=== PATIENT | male | born 1950 | race Caucasian/White ===

== ENCOUNTER 2020-06-26 16:27 | Inpatient (IN) | payer MEDICAID, MEDICARE ==
[~2020-06-26] VITALS: Ht 175.3 cm; Wt 57.7 kg
--- NOTE | 2020-06-26 17:44 | NUR ---
PT IS IN ROOM #2B. DR NUÑEZ EVALUATED THE PT.
[2020-06-26 18:05] LABS: BASOPHILS # (AUTO) 0.1 K/uL (0.0-8.0); BASOPHILS % (AUTO) 1.2 % (0.0-2.0); EOSINOPHILS # (AUTO) 0.5 K/uL (0.0-0.7); EOSINOPHILS % (AUTO) 6.3 % (0.0-7.0); HEMATOCRIT 24.3 % (36.7-47.1); LYMPHOCYTES # (AUTO) 0.5 K/uL (20.0-40.0); LYMPHOCYTES % (AUTO) 7.1 % (20.5-51.5); MEAN CORPUSCULAR HEMOGLOBIN 29.2 uug (23.8-33.4); MEAN CORPUSCULAR HGB CONC 30 g/dL (32.5-36.3); MEAN CORPUSCULAR VOLUME 98.1 fL (73.0-96.2); MONOCYTES # (AUTO) 0.6 K/uL (2.0-10.0); MONOCYTES % (AUTO) 8.5 % (0.0-11.0); NEUTROPHILS # (AUTO) 5.8 K/uL (1.8-8.9); NEUTROPHILS % (AUTO) 76.9 % (38.5-71.5); PLATELET COUNT (AUTO) 385 K/uL (152-348); WHITE BLOOD COUNT (AUTO) 7.6 K/uL (3.6-10.2)
[2020-06-26 18:09] LABS: RED BLOOD CELL COUNT(AUTO) 2.48 MIL/uL (4.06-5.63)
[2020-06-26 18:10] LABS: CREATININE 2.5 mg/dL (0.6-1.3); POTASSIUM 3.9 mmol/L (3.5-5.1)
[2020-06-26 18:12] LABS: HEMOGLOBIN 7.2 g/dL (12.5-16.3)
[2020-06-26 18:25] LABS: BILIRUBIN,DIRECT 0.2 mg/dL (0.0-0.2); BILIRUBIN,TOTAL 0.3 mg/dL (0.2-1.0); TOTAL PROTEIN, SERUM 6.5 g/dL (6.4-8.2)
--- NOTE | 2020-06-26 19:03 | NUR ---
Received report from CARMEN Kirk for continuity of care. Patient will be admitted to [facility] under Dr. Feliciano for near syncope, severe anemia, and hypernatremia
--- NOTE | 2020-06-26 19:46 | NUR ---
Per CARMEN Fulton patient will be going into 318
--- NOTE | 2020-06-26 19:48 | NUR ---
Elizabeth, RN will be nurse to assume care but is unable to take of report right now.
--- NOTE | 2020-06-26 20:09 | NUR ---
Report given to CARMEN Johnson
[2020-06-26] MEDS ORDERED: ONDANSETRON 4 MG/2 ML VIAL IV PRN (21:15)
[2020-06-26] MEDS ORDERED: MORPHINE SULFATE 2 MG/1 ML DISP.SYRIN IV PRN (21:15)
[2020-06-26] MEDS: DOCUSATE SODIUM 100 MG CAPSULE PO SCH (21:34)
[2020-06-26] MEDS: IV DEXTROSE 5% 500 ML IV PRN (21:35)
[2020-06-26 21:56] VITALS: BP 120/52
--- NOTE | 2020-06-26 22:47 | NUR ---
Pt arrived in the unit at 2049 via gurney from ER. Pt is AAO x3. No acute distress noted, room air. Denies pain/ discomfort. Pt noted to look unkempt. Noted multiple open ulcers on bilateral lower extremities. Pictures taken, wound care done. As per pt, he has been having a hard time moving and ambulating, unable to take care of himself, and lives alone. Pt has IV on right AC #20. Also noted pt to be hard of hearing. Safety measures maintained. Call light and personal items within reach. Will continue to monitor.
[2020-06-27] VITALS (12 sets, daily range): BP systolic 103–117; BP diastolic 55–66
[2020-06-27] MEDS: IV DEXTROSE 5% 500 ML IV PRN ×2 (05:10→12:56)
[2020-06-27] MEDS: PANTOPRAZOLE SODIUM 40 MG TABLET.DR PO SCH (06:04)
[2020-06-27 07:03] LABS: BASOPHILS # (AUTO) 0.1 K/uL (0.0-8.0); EOSINOPHILS # (AUTO) 0.8 K/uL (0.0-0.7); EOSINOPHILS % (AUTO) 9.9 % (0.0-7.0); LYMPHOCYTES # (AUTO) 0.8 K/uL (20.0-40.0); LYMPHOCYTES % (AUTO) 9.6 % (20.5-51.5); MEAN CORPUSCULAR HEMOGLOBIN 30.3 uug (23.8-33.4); MEAN CORPUSCULAR HGB CONC 31 g/dL (32.5-36.3); MEAN CORPUSCULAR VOLUME 98.3 fL (73.0-96.2); MONOCYTES # (AUTO) 0.8 K/uL (2.0-10.0); MONOCYTES % (AUTO) 9.6 % (0.0-11.0); NEUTROPHILS # (AUTO) 5.6 K/uL (1.8-8.9); NEUTROPHILS % (AUTO) 69.9 % (38.5-71.5); PLATELET COUNT (AUTO) 296 K/uL (152-348); WHITE BLOOD COUNT (AUTO) 8.1 K/uL (3.6-10.2)
[2020-06-27 07:24] LABS: THYROID STIMULATING HORMONE 3.233 mIU/mL (0.358-3.740)
[2020-06-27 07:57] LABS: BILIRUBIN,TOTAL 0.3 mg/dL (0.2-1.0); CREATININE 2.3 mg/dL (0.6-1.3); MAGNESIUM 2.1 mg/dL (1.8-2.4); PHOSPHOROUS 4.1 mg/dL (2.5-4.9); POTASSIUM 3.6 mmol/L (3.5-5.1); TOTAL PROTEIN, SERUM 5.3 g/dL (6.4-8.2)
[2020-06-27 08:38] LABS: RED BLOOD CELL COUNT(AUTO) 1.98 MIL/uL (4.06-5.63)
[2020-06-27 08:40] LABS: HEMATOCRIT 19.5 % (36.7-47.1)
--- NOTE | 2020-06-27 13:51 | NUR ---
unit of PRBC started, vss, instructed on s/s of BT reactions- verbalized understanding, will monitor closely
--- NOTE | 2020-06-27 14:10 | NUR ---
no shortness of breath noted, no itching, no rashes, VSS
--- NOTE | 2020-06-27 15:51 | NUR ---
blood infusing without problem
[2020-06-27 17:00] LABS: *BILIRUBIN,URIN NEGATIVE (NEGATIVE); *BLOOD, URINE NEGATIVE (NEGATIVE); *CLARITY,URINE CLEAR (CLEAR); *COLOR,URINE YELLOW (YELLOW); *KETONES,URINE NEGATIVE (NEGATIVE); *UROBILINOGEN,URINE 0.2 E.U./dl (NORMAL); LEUKOCYTE ESTERASE ,URINE NEGATIVE (NEGATIVE); NITRITE, URINE NEGATIVE (NEGATIVE); UGLUCOSE NEGATIVE (NEGATIVE)
--- NOTE | 2020-06-27 17:02 | NUR ---
blood transfusion completed, VSS, no BT reaction noted
[2020-06-27] MEDS: MAG HYDROX/AL HYDROX/SIMETH 30 ML LIQUID UDC PO PRN (18:15)
[2020-06-27 19:54] LABS: EOSINOPHILS % (MANUAL) 7 % (0-8); LYMPHOCYTES % (MANUAL) 5 % (20-40); MONOCYTES % (MANUAL) 4 % (2-10); NEUTROPHILS % (MANUAL) 84 % (42-75)
[2020-06-27] MEDS: DOCUSATE SODIUM 100 MG CAPSULE PO SCH (21:53)
[2020-06-28] MEDS: IV DEXTROSE 5% 500 ML IV PRN ×3 (02:45→17:00)
[2020-06-28 05:02] VITALS: BP 101/55
[2020-06-28] MEDS: PANTOPRAZOLE SODIUM 40 MG TABLET.DR PO SCH (06:46)
[2020-06-28 07:23] LABS: MEAN CORPUSCULAR VOLUME 95.4 fL (73.0-96.2); MONOCYTES # (AUTO) 0.4 K/uL (2.0-10.0); WHITE BLOOD COUNT (AUTO) 6.9 K/uL (3.6-10.2)
[2020-06-28 07:25] LABS: BASOPHILS # (AUTO) 0.1 K/uL (0.0-8.0); BASOPHILS % (AUTO) 0.8 % (0.0-2.0); LYMPHOCYTES # (AUTO) 0.7 K/uL (20.0-40.0); LYMPHOCYTES % (AUTO) 10.4 % (20.5-51.5); MEAN CORPUSCULAR HEMOGLOBIN 29.5 uug (23.8-33.4); MEAN CORPUSCULAR HGB CONC 31 g/dL (32.5-36.3); MONOCYTES % (AUTO) 6.2 % (0.0-11.0); NEUTROPHILS # (AUTO) 4.6 K/uL (1.8-8.9); NEUTROPHILS % (AUTO) 67.6 % (38.5-71.5); PLATELET COUNT (AUTO) 288 K/uL (152-348); RED BLOOD CELL COUNT(AUTO) 2.52 MIL/uL (4.06-5.63)
[2020-06-28 07:40] LABS: BILIRUBIN,TOTAL 0.2 mg/dL (0.2-1.0); MAGNESIUM 2.1 mg/dL (1.8-2.4); PHOSPHOROUS 3.4 mg/dL (2.5-4.9); TOTAL PROTEIN, SERUM 5.3 g/dL (6.4-8.2)
[2020-06-28 08:05] LABS: HEMOGLOBIN 7.4 g/dL (12.5-16.3)
[2020-06-28 11:40] VITALS: BP 107/54
--- NOTE | 2020-06-28 12:42 | NUR ---
WOUND CARE CONSULT: PT EATING LUNCH AT THIS TIME. LIMITED ASSESSMENT INCLUDING SACRAL SCARRING, PRESENT ON ADMISSION. DRESSINGS NOTED TO BILATERAL LOWER LEGS WITH SEROUS DRAINAGE, PRESENT ON ADMISSION. REVIEWED CHART, NURSING DOCUMENTATION AND PHOTOS WHICH INDICATE BILATERAL LOWER LEG ULCERS, PRESENT ON ADMISSION. DR OTT NOTIFED OF DPM CONSULT REQUEST. RECOMMENDATIONS MADE FOR PROTECTION OF SACRAL SCARRING. DISCUSSED WITH NURSING STAFF. CURRENT ADRIANA SCORE IS 15. MD IN AGREEMENT WITH PLAN OF CARE.
--- NOTE | 2020-06-28 15:41 | NUR ---
Communication Clerk Consultation: 12:10pm: This SW met with the patient today. Reason for consultation is that patient lives alone, patient suffers from OCD. Patient is a 70 year old male. Patient was brought to the ED by paramedics on 06/27/20 after he called 911 because he felt he was becoming weak, unable to walk, and was feeling faint. Patient is alert, oriented, receptive to speaking with this SW. Patient lives alone. Patient reports being able to tend to his ADL's, however he has re-occurring ankle/leg wounds that sometimes hinder his ability to ambulate. Patient reports several medical problems, such as heart arrhythmia, tinnitus, and OCD, however reports that he does not have a regular PCP and has not sought out medical care for nearly 20 years. Patient reports not taking any medications. Patient also reports that due to his OCD (which patient reports he was diagnosed with in 1981), patient has not sought out very minimal psychiatric care. Patient denies hx of psychiatric hospitalizations. Patient described some of his obsessions and compulsions, related to germs, dust, contaminants, and frequent hand washing. Patient also described anxious thoughts related to his OCD. SW allowed patient to expressed his thoughts, and provided support. SW discussed having a psychiatric consultation while in the hospital, and patient verbalized agreement. SW spoke with patient's nurse Siggy, who stated that the psychiatric consultation has already been ordered. Patient reported never being , nor having any children. Patient stated that he has a cousin, Vicky Carter, , who he has contact with about 1 x month, and during holidays. Vicky is listed on patient's face sheet as person to notify, and patient stated that Vicky is aware of patient's current hospitalization. Patient was cooperative with this SW throughout the interview, engaged in dialogue. Patient's affect and behavior were WNL, however patient's fingers and finger nails were unkempt. Patient's legs were wrapped in bandages due to wounds, which patient reported were hindering his ability to ambulate safely at this time. Patient reports not having any DME at home. Discharge plans were discussed, and patient reports that he would like to return home. SW to coordinate with case management to ensure a safe and proper discharge plan. SW will remain available to provide community resources, as needed. At this time, due to patient's multiple wounds and reported lack of medical care, this SW will file an APS report for self-neglect. Addendum: 06/28/20 at 1632 by ASH TYLER Additional information: Patient reports no hx of substance abuse. Patient's home address and phone number are: [id number] [place] [address]
--- NOTE | 2020-06-28 16:32 | NUR ---
APS report made for suspicion of self-neglect, report # [id number].
[2020-06-28 16:34] VITALS: BP 108/65
[2020-06-28] MEDS: ENSURE ENLIVE (VAN) 240 ML LIQUID PO SCH (17:59)
[2020-06-28 18:20] LABS: *CREATININE,URINE 60.6 mg/dL (30-125); *URINE TOTAL PROTEIN RANDOM 15.1 mg/dL (<150/24HR)
[2020-06-28 20:09] VITALS: BP 135/75
[2020-06-28] MEDS: DOCUSATE SODIUM 100 MG CAPSULE PO SCH (20:46)
[2020-06-28] MEDS ORDERED: VANCOMYCIN IV 1,000 MG in IV DEXTROSE 5% 250 ML IV SCH (21:00)
--- NOTE | 2020-06-28 21:00 | NUR ---
Received patient awake and alert. No s/s of acute distress noted at this time. Pt on RA denies SOB. Pt c/o mild pain in BLE, refusing pain medication at this time. BLE elevated and encouraged patient to reposition in bed often. Right AC IV patent and intact. Safety measures in place and will continue to monitor.
[2020-06-28] MEDS ORDERED: CEFEPIME HCL 1 G in IV DEXTROSE 5% 50 ML IV SCH (21:45)
[2020-06-28] MEDS ORDERED: CLINDAMYCIN PHOSPHATE IV 900 MG in IV DEXTROSE 5% 100 ML IV SCH (22:00)
[2020-06-28] MEDS ORDERED: CEFEPIME HCL 1 G VIAL ONE (23:04)
[2020-06-28] MEDS ORDERED: CLINDAMYCIN 900MG/D5W 100ML IVPB **ER PYXIS ONLY IJ ONE (23:04)
[2020-06-29] MEDS ORDERED: PIPERACILLIN/TAZO 2.25 G in IV DEXTROSE 5% 50 ML IV SCH ×2
[2020-06-29] MEDS: IV D5W 1000ML 1,000 ML IV SCH ×3 (00:02→21:55)
[2020-06-29 04:12] VITALS: BP 135/79
[2020-06-29] MEDS: PANTOPRAZOLE SODIUM 40 MG TABLET.DR PO SCH (06:14)
[2020-06-29 07:03] LABS: BILIRUBIN,TOTAL 0.3 mg/dL (0.2-1.0); CREATININE 1.5 mg/dL (0.6-1.3); PHOSPHOROUS 2.8 mg/dL (2.5-4.9); POTASSIUM 3.9 mmol/L (3.5-5.1); TOTAL PROTEIN, SERUM 5.5 g/dL (6.4-8.2)
[2020-06-29 07:14] LABS: BASOPHILS # (AUTO) 0.1 K/uL (0.0-8.0); EOSINOPHILS # (AUTO) 0.8 K/uL (0.0-0.7); EOSINOPHILS % (AUTO) 13.1 % (0.0-7.0); HEMATOCRIT 24.8 % (36.7-47.1); HEMOGLOBIN 7.6 g/dL (12.5-16.3); LYMPHOCYTES # (AUTO) 0.7 K/uL (20.0-40.0); LYMPHOCYTES % (AUTO) 11.4 % (20.5-51.5); MEAN CORPUSCULAR HEMOGLOBIN 29.2 uug (23.8-33.4); MEAN CORPUSCULAR HGB CONC 31 g/dL (32.5-36.3); MEAN CORPUSCULAR VOLUME 95.5 fL (73.0-96.2); MONOCYTES # (AUTO) 0.7 K/uL (2.0-10.0); MONOCYTES % (AUTO) 11.7 % (0.0-11.0); NEUTROPHILS % (AUTO) 62.8 % (38.5-71.5); PLATELET COUNT (AUTO) 272 K/uL (152-348); RED BLOOD CELL COUNT(AUTO) 2.59 MIL/uL (4.06-5.63); WHITE BLOOD COUNT (AUTO) 6.4 K/uL (3.6-10.2)
--- NOTE | 2020-06-29 08:30 | NUR ---
Received p.t in bed alert and awake, resting comfortably denies any pain and discomfort. I.V line is intact. Breathing is even and unlabored on room air. Vitals signs is wnl. compliant with most aspect of care. Call is within reach.
[2020-06-29] MEDS: MULTIVITAMINS,THERAPEUTIC TABLET PO SCH (08:50)
[2020-06-29] MEDS: FOLIC ACID 1 MG TABLET PO SCH (08:50)
[2020-06-29] MEDS: THIAMINE HCL 100 MG TABLET PO SCH (08:50)
[2020-06-29] MEDS: CLINDAMYCIN PHOSPHATE IV 900 MG in IV DEXTROSE 5% 100 ML IV SCH ×2 (09:04→16:32)
[2020-06-29] MEDS: ENSURE ENLIVE (VAN) 240 ML LIQUID PO SCH ×3 (09:04→17:07)
[2020-06-29] MEDS: THERAHONEY GEL 1.5 OZ TUBE TOP SCH (11:42)
[2020-06-29 12:42] VITALS: BP 132/83
[2020-06-29 15:56] VITALS: BP 121/64
[2020-06-29 16:43] LABS: ALBUMIN 2.1; ALPHA-1-GLOBULIN 0.3; ALPHA-2-GLOBULIN 0.6; BETA GLOBULIN 0.8
[2020-06-29 16:44] LABS: A/G RATIO 0.8; GLOBULIN, TOTAL 2.7; M-SPIKE NOT OBSERVED
--- NOTE | 2020-06-29 19:00 | NUR ---
P.t is bed comfortably watching T.V. Denies any pain and discomfort. Breathing is even and unlabored on R.A. vitals are WNL. All meds are rendered and tolerated well. PT rehab seen the patient today with 1 person assist. Remains complaint with most aspect of care. All needs are met. Relayed status to manufacturing supervisor 2nd shift nurse. Call light within reach.
--- NOTE | 2020-06-29 19:30 | NUR ---
Pt received in bed, resting. Does not appear to be in any pain or distress. No SOB noted. Pt is on RA sating at 100%. Bed is locked and in lowest position, bed alarm on. Call light is within reach. No other issues or concerns at this time.
[2020-06-29 20:00] VITALS: BP 128/76
[2020-06-29] MEDS: DOCUSATE SODIUM 100 MG CAPSULE PO SCH (20:00)
[2020-06-29] MEDS: CEFEPIME HCL 2 G in IV DEXTROSE 5% 100 ML IV SCH (20:00)
[2020-06-30] MEDS: CLINDAMYCIN PHOSPHATE IV 900 MG in IV DEXTROSE 5% 100 ML IV SCH ×3 (00:20→16:19)
[2020-06-30 04:00] VITALS: BP 123/72
[2020-06-30 05:59] LABS: BASOPHILS # (AUTO) 0.1 K/uL (0.0-8.0); BASOPHILS % (AUTO) 1.3 % (0.0-2.0); EOSINOPHILS # (AUTO) 0.9 K/uL (0.0-0.7); HEMATOCRIT 25.3 % (36.7-47.1); LYMPHOCYTES # (AUTO) 0.6 K/uL (20.0-40.0); LYMPHOCYTES % (AUTO) 11.5 % (20.5-51.5); MEAN CORPUSCULAR HGB CONC 32 g/dL (32.5-36.3); MEAN CORPUSCULAR VOLUME 95.2 fL (73.0-96.2); MONOCYTES # (AUTO) 0.7 K/uL (2.0-10.0); MONOCYTES % (AUTO) 13.4 % (0.0-11.0); NEUTROPHILS # (AUTO) 3.1 K/uL (1.8-8.9); NEUTROPHILS % (AUTO) 56.8 % (38.5-71.5); PLATELET COUNT (AUTO) 292 K/uL (152-348); RED BLOOD CELL COUNT(AUTO) 2.65 MIL/uL (4.06-5.63); WHITE BLOOD COUNT (AUTO) 5.4 K/uL (3.6-10.2)
[2020-06-30 06:10] LABS: CREATININE 1.3 mg/dL (0.6-1.3); MAGNESIUM 1.7 mg/dL (1.8-2.4); PHOSPHOROUS 2.8 mg/dL (2.5-4.9)
[2020-06-30] MEDS: PANTOPRAZOLE SODIUM 40 MG TABLET.DR PO SCH (06:25)
[2020-06-30] MEDS: ENSURE ENLIVE (VAN) 240 ML LIQUID PO SCH ×3 (08:09→17:33)
[2020-06-30] MEDS: IV D5W 1000ML 1,000 ML IV SCH ×2 (08:33→20:44)
[2020-06-30] MEDS ORDERED: MAGNESIUM OXIDE 400 MG TABLET PO ONE (09:00)
[2020-06-30] MEDS: MULTIVITAMINS,THERAPEUTIC TABLET PO SCH (09:01)
[2020-06-30] MEDS: THIAMINE HCL 100 MG TABLET PO SCH (09:01)
[2020-06-30] MEDS: FOLIC ACID 1 MG TABLET PO SCH (09:01)
[2020-06-30] MEDS: THERAHONEY GEL 1.5 OZ TUBE TOP SCH (09:21)
[2020-06-30 11:58] VITALS: BP 106/63
--- NOTE | 2020-06-30 15:27 | NUR ---
NAYELI received a phone call from APS home restoration service supervisor Vernell, , and APS NAYELI Wesley [phone]. NAYELI called Vernell back, who wanted to check on patient's location. NAYELI informed Vernell that patient is currently still at [facility]. Vernell thanked NAYELI for this information and stated that Maryjane is the assigned SW for the case. NAYELI called Mayrjane. Patient's needs were discussed. SW to follow-up with Maryjane regarding DC plan and date.
[2020-06-30 16:00] VITALS: BP 111/67
[2020-06-30 17:36] LABS: *OCCULT BLOOD STOOL POSITIVE (NEGATIVE)
--- NOTE | 2020-06-30 19:35 | NUR ---
Received patient in bed, awake, alert and oriented x 4, able to make needs known. IV access on R upper arm intact and patent. Saturating 99% on room air. No s/s of acute respiratory distress. No pain or discomfort reported. Safety measures initiated, bed on low position, call sow within reach. will continue to monitor.
[2020-06-30 20:09] VITALS: BP_SYST 110; BP_SYST 123; BP_DIAS 53; BP_DIAS 64
[2020-06-30] MEDS: CEFEPIME HCL 2 G in IV DEXTROSE 5% 100 ML IV SCH (20:28)
[2020-06-30] MEDS: DOCUSATE SODIUM 100 MG CAPSULE PO SCH (20:29)
[2020-07-01 04:09] VITALS: BP 122/75
[2020-07-01 05:36] LABS: BASOPHILS % (AUTO) 0.7 % (0.0-2.0); EOSINOPHILS # (AUTO) 0.9 K/uL (0.0-0.7); HEMATOCRIT 24.3 % (36.7-47.1); HEMOGLOBIN 7.8 g/dL (12.5-16.3); LYMPHOCYTES # (AUTO) 0.8 K/uL (20.0-40.0); LYMPHOCYTES % (AUTO) 14.2 % (20.5-51.5); MEAN CORPUSCULAR HGB CONC 32 g/dL (32.5-36.3); MONOCYTES % (AUTO) 17.1 % (0.0-11.0); NEUTROPHILS # (AUTO) 2.9 K/uL (1.8-8.9); PLATELET COUNT (AUTO) 295 K/uL (152-348); RED BLOOD CELL COUNT(AUTO) 2.59 MIL/uL (4.06-5.63); WHITE BLOOD COUNT (AUTO) 5.6 K/uL (3.6-10.2)
[2020-07-01 05:45] LABS: BAND % (MANUAL) 0 % (0-10); EOSINOPHILS % (MANUAL) 16 % (0-8); LYMPHOCYTES % (MANUAL) 14 % (20-40); MONOCYTES % (MANUAL) 17 % (2-10); NEUTROPHILS % (MANUAL) 53 % (42-75)
[2020-07-01 06:03] LABS: CREATININE 1.2 mg/dL (0.6-1.3); PHOSPHOROUS 2.4 mg/dL (2.5-4.9); POTASSIUM 4.3 mmol/L (3.5-5.1)
[2020-07-01] MEDS: PANTOPRAZOLE SODIUM 40 MG TABLET.DR PO SCH (06:03)
[2020-07-01 06:16] LABS: MAGNESIUM 1.8 mg/dL (1.8-2.4)
--- NOTE | 2020-07-01 06:32 | NUR ---
Patient slept through the night, no s/s of respiratory distress. No pain or discomfort reported. IV access on right upper arm intact and patent. Medications tolerated well. All needs attended. Safety measures maintained. Call sow within reach.
--- NOTE | 2020-07-01 07:30 | NUR ---
received report on pt, awake alert and oriented x4. resting in bed, no signs of distress noted. pt is on Room Air, urinal at bedside. IV access on the right arm 22g running D5W @90ml/hr. Safety precautions in place. Will continue to monitor.
[2020-07-01] MEDS: THIAMINE HCL 100 MG TABLET PO SCH (08:29)
[2020-07-01] MEDS: MULTIVITAMINS,THERAPEUTIC TABLET PO SCH (08:29)
[2020-07-01] MEDS: DOXYCYCLINE HYCLATE 100 MG TABLET PO SCH ×2 (08:29→20:54)
[2020-07-01] MEDS: FOLIC ACID 1 MG TABLET PO SCH (08:29)
[2020-07-01] MEDS: IV D5W 1000ML 1,000 ML IV SCH ×2 (08:30→19:33)
[2020-07-01] MEDS: THERAHONEY GEL 1.5 OZ TUBE TOP SCH (08:31)
[2020-07-01] MEDS: ENSURE ENLIVE (VAN) 240 ML LIQUID PO SCH ×3 (08:32→16:41)
[2020-07-01] MEDS ORDERED: PANTOPRAZOLE SODIUM IV 80 MG in IV DEXTROSE 5% 500 ML IV SCH (10:45)
--- NOTE | 2020-07-01 11:17 | NUR ---
SW met with CARMEN Lopes to follow-up on patient's pending psychiatry consultation. Moses updated the psychiatry consultation request in [facility], submitting it again. SW will follow-up, as needed. SW met with the patient, as a follow up to provide community resources. Patient was awake, receptive to speaking with this SW. Patient's discharge plan is to return home. SW provided patient with the following community resources: 1) [employer] application and phone number, 2) [employer] Response System: [employer], ; [employer] [phone]; [employer] [phone] 3) Meals and Food Programs: [employer] 719-675-6195; [employer] 056-606-7163; [facility] ; [employer] [phone] 4) Meal/Grocery Delivery Program: [employer] [phone] Rn Acute will continue to remain available to the patient, as needed.
[2020-07-01 11:33] VITALS: BP 117/63
[2020-07-01] MEDS: PANTOPRAZOLE SODIUM 40 MG VIAL IV SCH ×2 (11:55→20:54)
[2020-07-01] MEDS ORDERED: NEUTRA PHOS PACKET PO ONE (15:45)
[2020-07-01 16:00] VITALS: BP 112/63
[2020-07-01] MEDS: FLUOXETINE HCL 10 MG CAPSULE PO SCH (17:00)
--- NOTE | 2020-07-01 17:00 | NUR ---
Per MD orders, prozac 5mg was ordered but only 10mg capsule is available in the pyxis. Pharmacy notified, will hold until proper dose is able to be given.
--- NOTE | 2020-07-01 19:33 | NUR ---
pt resting in bed, all medication given as ordered. pt awake alert and oriented x4. no signs of distress noted. Will endorse to oncoming nurse.
--- NOTE | 2020-07-01 19:35 | NUR ---
Received patient in bed, awake, A&Ox4, able to make needs known. No signs and symptoms of acute respiratory distress, no pain or discomfort noted. IV access on Right upper arm intact and patent. Safety measures initiated, bed in low position, call sow within reach. will continue to monitor.
[2020-07-01 20:03] VITALS: BP 123/71
[2020-07-01] MEDS: DOCUSATE SODIUM 100 MG CAPSULE PO SCH (20:54)
[2020-07-01] MEDS: ACETAMINOPHEN 325 MG TABLET PO PRN (22:51)
[2020-07-02 04:03] VITALS: BP 139/78
[2020-07-02] MEDS: ACETAMINOPHEN 325 MG TABLET PO PRN (05:13)
[2020-07-02 05:54] LABS: BASOPHILS # (AUTO) 0.1 K/uL (0.0-8.0); BASOPHILS % (AUTO) 1.2 % (0.0-2.0); EOSINOPHILS # (AUTO) 0.8 K/uL (0.0-0.7); HEMOGLOBIN 7.9 g/dL (12.5-16.3); LYMPHOCYTES # (AUTO) 1.1 K/uL (20.0-40.0); LYMPHOCYTES % (AUTO) 18.6 % (20.5-51.5); MEAN CORPUSCULAR HEMOGLOBIN 31.1 uug (23.8-33.4); MEAN CORPUSCULAR HGB CONC 33 g/dL (32.5-36.3); MEAN CORPUSCULAR VOLUME 94.5 fL (73.0-96.2); MONOCYTES # (AUTO) 1.1 K/uL (2.0-10.0); NEUTROPHILS # (AUTO) 2.7 K/uL (1.8-8.9); NEUTROPHILS % (AUTO) 47.2 % (38.5-71.5); PLATELET COUNT (AUTO) 278 K/uL (152-348); RED BLOOD CELL COUNT(AUTO) 2.54 MIL/uL (4.06-5.63); WHITE BLOOD COUNT (AUTO) 5.7 K/uL (3.6-10.2)
[2020-07-02 06:08] LABS: CREATININE 1.2 mg/dL (0.6-1.3); MAGNESIUM 1.7 mg/dL (1.8-2.4); PHOSPHOROUS 2.3 mg/dL (2.5-4.9); POTASSIUM 4.3 mmol/L (3.5-5.1)
[2020-07-02 06:20] LABS: EOSINOPHILS % (MANUAL) 23 % (0-8); LYMPHOCYTES % (MANUAL) 13 % (20-40); MONOCYTES % (MANUAL) 15 % (2-10); NEUTROPHILS % (MANUAL) 49 % (42-75)
[2020-07-02] MEDS: IV D5W 1000ML 1,000 ML IV SCH ×2 (06:23→18:00)
--- NOTE | 2020-07-02 06:56 | NUR ---
Patient slept through the night, no s/s of respiratory distress. No pain or discomfort reported. IV access on R upper arm intact and patent. Medications tolerated well. All needs attended. Safety measures maintained. Call sow within reach.
--- NOTE | 2020-07-02 07:30 | NUR ---
Awake, alert, oriented x 4, on moderate high back rest. IVF infusing.
[2020-07-02] MEDS: FLUOXETINE HCL 10 MG CAPSULE PO SCH ×2 (08:00→15:41)
[2020-07-02] MEDS: FOLIC ACID 1 MG TABLET PO SCH (10:18)
[2020-07-02] MEDS: MULTIVITAMINS,THERAPEUTIC TABLET PO SCH (10:18)
[2020-07-02] MEDS: THIAMINE HCL 100 MG TABLET PO SCH (10:18)
[2020-07-02] MEDS: DOXYCYCLINE HYCLATE 100 MG TABLET PO SCH ×2 (10:18→20:30)
[2020-07-02] MEDS: PANTOPRAZOLE SODIUM 40 MG VIAL IV SCH (10:18)
[2020-07-02] MEDS: THERAHONEY GEL 1.5 OZ TUBE TOP SCH (10:25)
[2020-07-02] MEDS: ENSURE ENLIVE (VAN) 240 ML LIQUID PO SCH ×3 (10:27→18:00)
[2020-07-02 12:00] VITALS: BP 98/55
[2020-07-02] MEDS ORDERED: MAGNESIUM OXIDE 400 MG TABLET GT ONE (12:30)
--- NOTE | 2020-07-02 15:00 | NUR ---
Wound care done. BLE elevated over pillow
--- NOTE | 2020-07-02 15:12 | NUR ---
This SW spoke with patient's attending physician, Rishi Garcia NP, who stated that patient wanted to consider a board and care as a potential discharge plan. SW informed Rishi that SW will let case management know about patient's inquiry, and will ask case management to follow-up with the patient. Rishi expressed agreement. NAYELI called and spoke with VIC Calderon, who stated that she would follow-up with contacting the patient to discuss discharge plans.
[2020-07-02] MEDS ORDERED: NEUTRA PHOS PACKET PO ONE (15:45)
--- NOTE | 2020-07-02 16:08 | NUR ---
NAYELI received a call back from VIC Calderon, who stated that she spoke with the patient regarding his discharge plans. Yumiko stated that patient stated that he prefers to be discharged home first because he has some personal things he needs to manage, after which he would look into moving to a board and care facility. NAYELI informed Yumiko that NAYELI would provide patient with resources. NAYELI then met with the patient, and provided him with the New Lifestyle Guide to Assisted and Care booklet, informing the patient that the booklet includes many board and care facilities, assisted living facilities, and other care home resources. Patient was receptive to this resource and thanked this SW. Patient also stated that at admission his clothes were soiled and therefore thrown out, and asked this SW if he could have some clothes. NAYELI provided patient with a pair of pants and a shirt. Patient's attending physician Rishi Garcia NP, informed of above discharge plans and resources provided.
[2020-07-02 16:09] VITALS: BP 122/64
[2020-07-02] MEDS: PANTOPRAZOLE SODIUM 40 MG TABLET.DR PO SCH (18:00)
--- NOTE | 2020-07-02 18:57 | NUR ---
Afebrile. IVF infusing. Kept comfortable
[2020-07-02] MEDS: DOCUSATE SODIUM 100 MG CAPSULE PO SCH (20:29)
[2020-07-02 20:30] VITALS: BP 117/59
--- NOTE | 2020-07-02 20:30 | NUR ---
Medication Vibramycin po medication bar unscannable, enter manually.
[2020-07-03] MEDS: IV D5W 1000ML 1,000 ML IV SCH (02:15)
[2020-07-03 05:41] VITALS: BP 110/64
--- NOTE | 2020-07-03 05:57 | NUR ---
Patient alert oriented, no sob no chest pain, patient cooperative with care. Patient bilateral venous insufficiency wounds with dressing, kept elevated with pillow, no complain of pain. call light within reach.
[2020-07-03] MEDS: PANTOPRAZOLE SODIUM 40 MG TABLET.DR PO SCH ×2 (06:18→17:30)
[2020-07-03 06:23] LABS: BASOPHILS # (AUTO) 0.1 K/uL (0.0-8.0); BASOPHILS % (AUTO) 1.4 % (0.0-2.0); EOSINOPHILS # (AUTO) 0.7 K/uL (0.0-0.7); EOSINOPHILS % (AUTO) 13.4 % (0.0-7.0); HEMATOCRIT 22.9 % (36.7-47.1); LYMPHOCYTES % (AUTO) 18.3 % (20.5-51.5); MEAN CORPUSCULAR HEMOGLOBIN 29.6 uug (23.8-33.4); MEAN CORPUSCULAR HGB CONC 32 g/dL (32.5-36.3); MEAN CORPUSCULAR VOLUME 92.2 fL (73.0-96.2); MONOCYTES # (AUTO) 1.2 K/uL (2.0-10.0); MONOCYTES % (AUTO) 21.5 % (0.0-11.0); NEUTROPHILS # (AUTO) 2.5 K/uL (1.8-8.9); NEUTROPHILS % (AUTO) 45.4 % (38.5-71.5); PLATELET COUNT (AUTO) 282 K/uL (152-348); WHITE BLOOD COUNT (AUTO) 5.6 K/uL (3.6-10.2)
[2020-07-03 06:35] LABS: CREATININE 1.2 mg/dL (0.6-1.3); MAGNESIUM 1.7 mg/dL (1.8-2.4); PHOSPHOROUS 2.9 mg/dL (2.5-4.9); POTASSIUM 4.3 mmol/L (3.5-5.1)
[2020-07-03 07:06] LABS: RED BLOOD CELL COUNT(AUTO) 2.49 MIL/uL (4.06-5.63)
[2020-07-03 07:13] LABS: HEMOGLOBIN 7.4 g/dL (12.5-16.3)
--- NOTE | 2020-07-03 07:33 | NUR ---
Patient H&H 7.4, endorse to Hilton España RN.
[2020-07-03] MEDS: THIAMINE HCL 100 MG TABLET PO SCH (08:28)
[2020-07-03] MEDS: MULTIVITAMINS,THERAPEUTIC TABLET PO SCH (08:28)
[2020-07-03] MEDS: ENSURE ENLIVE (VAN) 240 ML LIQUID PO SCH ×3 (08:28→17:30)
[2020-07-03] MEDS: FOLIC ACID 1 MG TABLET PO SCH (08:28)
[2020-07-03] MEDS: DOXYCYCLINE HYCLATE 100 MG TABLET PO SCH ×2 (08:29→20:27)
[2020-07-03] MEDS: THERAHONEY GEL 1.5 OZ TUBE TOP SCH (08:30)
[2020-07-03] MEDS: MAGNESIUM SULFATE/D5W 100 ML IV SCH ×2 (10:48→10:53)
[2020-07-03 11:58] VITALS: BP 102/52
[2020-07-03] MEDS: FLUOXETINE HCL 10 MG CAPSULE PO SCH (12:12)
[2020-07-03 15:51] LABS: BAND % (MANUAL) 2 % (0-10); EOSINOPHILS % (MANUAL) 13 % (0-8); LYMPHOCYTES % (MANUAL) 22 % (20-40); MONOCYTES % (MANUAL) 9 % (2-10); NEUTROPHILS % (MANUAL) 53 % (42-75)
[2020-07-03 16:09] VITALS: BP 107/61
--- NOTE | 2020-07-03 18:19 | NUR ---
patiet alert oriented able to make needs known. vital signs stable. on room air, no SOB noted, no complain of pain or discomfort. wound care done on both ankles using aseptic technique, no excudate noted, wounds are dry. continent of bowel and bladder. charged nurse made aware of H&H 7.4, Continue plan of care. Safety measures provided, call light within reach, bed low and lock. all needs attended. will continue to monitor.
[2020-07-03] MEDS: DOCUSATE SODIUM 100 MG CAPSULE PO SCH (20:27)
[2020-07-03 21:08] VITALS: BP 106/55
[2020-07-03] MEDS: ACETAMINOPHEN 325 MG TABLET PO PRN (21:30)
[2020-07-04] VITALS (11 sets, daily range): BP systolic 99–131; BP diastolic 50–71
[2020-07-04] MEDS: IBUPROFEN 600 MG TABLET PO PRN ×2 (05:49→10:34)
--- NOTE | 2020-07-04 05:50 | NUR ---
Pt awake, denies any acute distress or pain. No SOB/CP. Pt stable throughout the shift. On room air. Comfort care and needs attended. Safety measures in place. Will endorse to oncoming nurse.
[2020-07-04] MEDS: PANTOPRAZOLE SODIUM 40 MG TABLET.DR PO SCH ×2 (06:01→16:38)
[2020-07-04 06:18] LABS: BASOPHILS # (AUTO) 0.1 K/uL (0.0-8.0); BASOPHILS % (AUTO) 2.2 % (0.0-2.0); EOSINOPHILS # (AUTO) 0.6 K/uL (0.0-0.7); EOSINOPHILS % (AUTO) 11.4 % (0.0-7.0); HEMATOCRIT 21.8 % (36.7-47.1); LYMPHOCYTES % (AUTO) 18.3 % (20.5-51.5); MEAN CORPUSCULAR HEMOGLOBIN 29.5 uug (23.8-33.4); MEAN CORPUSCULAR HGB CONC 32 g/dL (32.5-36.3); MEAN CORPUSCULAR VOLUME 92.9 fL (73.0-96.2); MONOCYTES # (AUTO) 1.1 K/uL (2.0-10.0); MONOCYTES % (AUTO) 20.7 % (0.0-11.0); NEUTROPHILS # (AUTO) 2.5 K/uL (1.8-8.9); NEUTROPHILS % (AUTO) 47.4 % (38.5-71.5); PLATELET COUNT (AUTO) 277 K/uL (152-348); WHITE BLOOD COUNT (AUTO) 5.3 K/uL (3.6-10.2)
[2020-07-04 06:26] LABS: RED BLOOD CELL COUNT(AUTO) 2.35 MIL/uL (4.06-5.63)
[2020-07-04 06:27] LABS: HEMOGLOBIN 6.9 g/dL (12.5-16.3)
[2020-07-04 06:32] LABS: MAGNESIUM 1.8 mg/dL (1.8-2.4); PHOSPHOROUS 3.4 mg/dL (2.5-4.9); POTASSIUM 4.3 mmol/L (3.5-5.1)
[2020-07-04 07:41] LABS: LYMPHOCYTES % (MANUAL) 16 % (20-40); MONOCYTES % (MANUAL) 19 % (2-10); NEUTROPHILS % (MANUAL) 52 % (42-75)
[2020-07-04 07:42] LABS: BASOPHILS % (MANUAL) 1 % (0-2); EOSINOPHILS % (MANUAL) 12 % (0-8)
[2020-07-04] MEDS: FOLIC ACID 1 MG TABLET PO SCH (07:51)
[2020-07-04] MEDS: ENSURE ENLIVE (VAN) 240 ML LIQUID PO SCH ×3 (07:51→16:38)
[2020-07-04] MEDS: MULTIVITAMINS,THERAPEUTIC TABLET PO SCH (07:52)
[2020-07-04] MEDS: THIAMINE HCL 100 MG TABLET PO SCH (07:52)
[2020-07-04] MEDS: DOXYCYCLINE HYCLATE 100 MG TABLET PO SCH ×2 (07:52→20:51)
[2020-07-04] MEDS: THERAHONEY GEL 1.5 OZ TUBE TOP SCH (08:03)
[2020-07-04] MEDS: FLUOXETINE HCL 10 MG CAPSULE PO SCH (11:03)
--- NOTE | 2020-07-04 13:30 | NUR ---
one unit prbc given per md orders
[2020-07-04] MEDS: SOD FERRIC GLUC COMPLX/SUCROSE 125 MG in IV NORMAL SALINE 100 ML IV SCH (13:37)
[2020-07-04 13:59] LABS: BASOPHILS # (AUTO) 0.1 K/uL (0.0-8.0); BASOPHILS % (AUTO) 1.7 % (0.0-2.0); EOSINOPHILS # (AUTO) 0.6 K/uL (0.0-0.7); EOSINOPHILS % (AUTO) 10.5 % (0.0-7.0); HEMATOCRIT 31.3 % (36.7-47.1); LYMPHOCYTES # (AUTO) 1.5 K/uL (20.0-40.0); LYMPHOCYTES % (AUTO) 25.8 % (20.5-51.5); MEAN CORPUSCULAR HEMOGLOBIN 29.4 uug (23.8-33.4); MEAN CORPUSCULAR HGB CONC 32 g/dL (32.5-36.3); MEAN CORPUSCULAR VOLUME 91.9 fL (73.0-96.2); MONOCYTES # (AUTO) 1.1 K/uL (2.0-10.0); MONOCYTES % (AUTO) 19.3 % (0.0-11.0); NEUTROPHILS # (AUTO) 2.5 K/uL (1.8-8.9); NEUTROPHILS % (AUTO) 42.7 % (38.5-71.5); PLATELET COUNT (AUTO) 338 K/uL (152-348); WHITE BLOOD COUNT (AUTO) 5.9 K/uL (3.6-10.2)
--- NOTE | 2020-07-04 15:04 | NUR ---
pt went to gi lab via bed in stable condition
[2020-07-04 15:11] LABS: EOSINOPHILS % (MANUAL) 11 % (0-8); LYMPHOCYTES % (MANUAL) 22 % (20-40); MONOCYTES % (MANUAL) 19 % (2-10); NEUTROPHILS % (MANUAL) 48 % (42-75)
[2020-07-04] MEDS ORDERED: MIDAZOLAM HCL 10 MG/2 ML VIAL ONE (15:48)
[2020-07-04] MEDS ORDERED: IV LACTATED RINGERS SOLUTION 1,000 ML BAG IV ONE (15:54)
[2020-07-04] MEDS ORDERED: IRR STERIL WATER FOR IRR 1000 ML BOTTLE IR ONE (15:54)
[2020-07-04] MEDS ORDERED: LIDOCAINE-MPF 2% 5 ML VIAL IJ ONE (15:54)
[2020-07-04] MEDS ORDERED: PROPOFOL 200 MG/20 ML BOTTLE IV ONE (15:54)
[2020-07-04] MEDS: SUCRALFATE 1 G/10 ML LIQUID UDC GT SCH ×2 (16:38→20:50)
--- NOTE | 2020-07-04 16:38 | NUR ---
pt received from recovery room via bed in stable condition
[2020-07-04] MEDS: DOCUSATE SODIUM 100 MG CAPSULE PO SCH (20:50)
[2020-07-05 04:00] VITALS: BP 94/52
[2020-07-05] MEDS: IBUPROFEN 600 MG TABLET PO PRN (05:29)
[2020-07-05] MEDS: PANTOPRAZOLE SODIUM 40 MG TABLET.DR PO SCH ×2 (06:20→16:13)
--- NOTE | 2020-07-05 06:23 | NUR ---
PT SLEPT COMFORTABLY. PT IN NO ACUTE DISTRESS. PRESCRIBED MEDICATION GIVEN AND PT TOLERATED IT WELL. WOUND DRESSING INTACT AND CHANGED. MOTRIN PRN GIVEN AT 0529H. ALL NEEDS ARE MET. WILL ENDORSE TO INCOMING NURSE FOR CONTINUITY OF CARE.
[2020-07-05] MEDS: SUCRALFATE 1 G/10 ML LIQUID UDC GT SCH ×4 (06:31→20:00)
--- NOTE | 2020-07-05 06:32 | NUR ---
CARAFATE AND PROTONIX NOT GIVEN BECAUSE PT IS GOING TO HAVE CT ABDOMEN /PELVIS WITH CONTRAST.
[2020-07-05 06:42] LABS: BASOPHILS # (AUTO) 0.1 K/uL (0.0-8.0); BASOPHILS % (AUTO) 2.3 % (0.0-2.0); EOSINOPHILS # (AUTO) 0.5 K/uL (0.0-0.7); EOSINOPHILS % (AUTO) 9.3 % (0.0-7.0); HEMATOCRIT 25.7 % (36.7-47.1); HEMOGLOBIN 8.5 g/dL (12.5-16.3); LYMPHOCYTES # (AUTO) 0.9 K/uL (20.0-40.0); LYMPHOCYTES % (AUTO) 17.1 % (20.5-51.5); MEAN CORPUSCULAR HEMOGLOBIN 29.9 uug (23.8-33.4); MEAN CORPUSCULAR HGB CONC 33 g/dL (32.5-36.3); MEAN CORPUSCULAR VOLUME 90.9 fL (73.0-96.2); MONOCYTES # (AUTO) 1.1 K/uL (2.0-10.0); MONOCYTES % (AUTO) 21.2 % (0.0-11.0); NEUTROPHILS # (AUTO) 2.5 K/uL (1.8-8.9); NEUTROPHILS % (AUTO) 50.1 % (38.5-71.5); PLATELET COUNT (AUTO) 293 K/uL (152-348); RED BLOOD CELL COUNT(AUTO) 2.83 MIL/uL (4.06-5.63); WHITE BLOOD COUNT (AUTO) 5.1 K/uL (3.6-10.2)
[2020-07-05 06:58] LABS: CREATININE 1.1 mg/dL (0.6-1.3); MAGNESIUM 1.7 mg/dL (1.8-2.4); PHOSPHOROUS 3.6 mg/dL (2.5-4.9); POTASSIUM 4.2 mmol/L (3.5-5.1)
[2020-07-05] MEDS ORDERED: BARIUM SULFATE 450 ML ORAL.SUSP ONE (07:13)
[2020-07-05] MEDS ORDERED: IV NORMAL SALINE 250 ML IV ONE (07:13)
[2020-07-05] MEDS ORDERED: SWABABLE VALVE TRANSFER SET EA MC ONE (07:13)
[2020-07-05] MEDS ORDERED: IOHEXOL 300MG/ML 100 ML INFUS..BTL ONE (07:13)
[2020-07-05] MEDS: ENSURE ENLIVE (VAN) 240 ML LIQUID PO SCH ×3 (08:56→17:40)
--- NOTE | 2020-07-05 09:30 | NUR ---
PATIENT RETURNED FROM ABDOMINAL CT. GIVEN SNACKS TO SUPPLEMENT BREAKFAST. NO S/S OF DISTRESS OR SOB NOTED. DENIES PAIN AT THIS TIME.
[2020-07-05] MEDS: THIAMINE HCL 100 MG TABLET PO SCH (09:37)
[2020-07-05] MEDS: MULTIVITAMINS,THERAPEUTIC TABLET PO SCH (09:37)
[2020-07-05] MEDS: FOLIC ACID 1 MG TABLET PO SCH (09:37)
[2020-07-05] MEDS: THERAHONEY GEL 1.5 OZ TUBE TOP SCH (09:38)
[2020-07-05] MEDS: DOXYCYCLINE HYCLATE 100 MG TABLET PO SCH ×2 (09:38→20:01)
--- NOTE | 2020-07-05 09:50 | NUR ---
SEEN BY DR SIERRA - PSYCHIATRY. SEE MD NOTES FOR NEW ORDERS AND INSTRUCTIONS.
[2020-07-05] MEDS: MAGNESIUM SULFATE/D5W 100 ML IV SCH ×2 (09:59→11:00)
[2020-07-05] MEDS: FLUOXETINE HCL 10 MG CAPSULE PO SCH (11:00)
[2020-07-05 12:00] VITALS: BP 105/64
[2020-07-05] MEDS: SOD FERRIC GLUC COMPLX/SUCROSE 125 MG in IV NORMAL SALINE 100 ML IV SCH (13:45)
[2020-07-05 15:34] LABS: BAND % (MANUAL) 3 % (0-10); BASOPHILS % (MANUAL) 1 % (0-2); EOSINOPHILS % (MANUAL) 8 % (0-8); LYMPHOCYTES % (MANUAL) 26 % (20-40); MONOCYTES % (MANUAL) 14 % (2-10); NEUTROPHILS % (MANUAL) 48 % (42-75)
[2020-07-05 16:00] VITALS: BP 107/63
[2020-07-05] MEDS: MAG HYDROX/AL HYDROX/SIMETH 30 ML LIQUID UDC PO PRN (16:13)
[2020-07-05] MEDS: DOCUSATE SODIUM 100 MG CAPSULE PO SCH (20:01)
[2020-07-05 20:04] VITALS: BP 107/61
[2020-07-06 04:03] VITALS: BP 105/60
[2020-07-06 06:05] LABS: BASOPHILS # (AUTO) 0.1 K/uL (0.0-8.0); BASOPHILS % (AUTO) 1.9 % (0.0-2.0); EOSINOPHILS # (AUTO) 0.3 K/uL (0.0-0.7); EOSINOPHILS % (AUTO) 6.7 % (0.0-7.0); HEMATOCRIT 26.2 % (36.7-47.1); HEMOGLOBIN 8.5 g/dL (12.5-16.3); LYMPHOCYTES # (AUTO) 1.1 K/uL (20.0-40.0); LYMPHOCYTES % (AUTO) 22.3 % (20.5-51.5); MEAN CORPUSCULAR HEMOGLOBIN 29.7 uug (23.8-33.4); MEAN CORPUSCULAR HGB CONC 32 g/dL (32.5-36.3); MEAN CORPUSCULAR VOLUME 91.7 fL (73.0-96.2); MONOCYTES % (AUTO) 21.1 % (0.0-11.0); NEUTROPHILS # (AUTO) 2.4 K/uL (1.8-8.9); PLATELET COUNT (AUTO) 317 K/uL (152-348); RED BLOOD CELL COUNT(AUTO) 2.86 MIL/uL (4.06-5.63); WHITE BLOOD COUNT (AUTO) 4.9 K/uL (3.6-10.2)
[2020-07-06] MEDS: PANTOPRAZOLE SODIUM 40 MG TABLET.DR PO SCH (06:13)
[2020-07-06 06:30] LABS: EOSINOPHILS % (MANUAL) 11 % (0-8); LYMPHOCYTES % (MANUAL) 19 % (20-40); MONOCYTES % (MANUAL) 19 % (2-10); NEUTROPHILS % (MANUAL) 51 % (42-75)
--- NOTE | 2020-07-06 06:44 | NUR ---
PT SLEPT INTERMITTENTLY. PT IN NO ACUTE DISTRESS. IV INTACT. WOUND DRESSING CHANGED. PRESCRIBED MEDICATION GIVEN AND PT TOLERATED IT WELL. SAFETY AND COMFORT PROVIDED. WILL ENDORSE TO INCOMING NURSE FOR CONTINUITY OF CARE.
[2020-07-06 06:45] LABS: CREATININE 1.1 mg/dL (0.6-1.3); MAGNESIUM 2.1 mg/dL (1.8-2.4); PHOSPHOROUS 3.1 mg/dL (2.5-4.9); POTASSIUM 4.2 mmol/L (3.5-5.1)
[2020-07-06] MEDS: SUCRALFATE 1 G/10 ML LIQUID UDC GT SCH ×2 (06:54→12:30)
--- NOTE | 2020-07-06 07:30 | NUR ---
Received patient resting in bed awake, alert and oriented times 4. No sign of distress noted. Patient complained of weakness. Patient is on room air. Safety precautions are in place. Will continue to monitor
[2020-07-06 07:55] VITALS: BP 96/56
[2020-07-06] MEDS: MULTIVITAMINS,THERAPEUTIC TABLET PO SCH (08:17)
[2020-07-06] MEDS: ENSURE ENLIVE (VAN) 240 ML LIQUID PO SCH ×2 (08:17→12:31)
[2020-07-06] MEDS: FOLIC ACID 1 MG TABLET PO SCH (08:17)
[2020-07-06] MEDS: THIAMINE HCL 100 MG TABLET PO SCH (08:17)
[2020-07-06] MEDS: DOXYCYCLINE HYCLATE 100 MG TABLET PO SCH (08:18)
[2020-07-06] MEDS: THERAHONEY GEL 1.5 OZ TUBE TOP SCH (08:18)
--- NOTE | 2020-07-06 10:15 | NUR ---
MINING HELPER from hematology/oncology is in with the patient.
[2020-07-06 12:00] VITALS: BP 97/54
[2020-07-06] MEDS ORDERED: SUCR1ORA PO (12:09)
[2020-07-06] MEDS ORDERED: DOCU100C36 PO (12:09)
[2020-07-06] MEDS ORDERED: THIA100T13 PO (12:09)
[2020-07-06] MEDS ORDERED: FLUO10CA29 PO (12:09)
[2020-07-06] MEDS ORDERED: Folic Acid PO (12:09)
[2020-07-06] MEDS ORDERED: PANT40TA2 PO (12:09)
[2020-07-06] MEDS ORDERED: FERR325T23 PO (12:13)
--- NOTE | 2020-07-06 12:23 | NUR ---
SW met with the patient today, and provided him with outpatient mental health resources: 1)[facility] [address], [address] [place] [address] 2)[facility] [address] [place] [address] 3)[facility], [facility]. [address] [place] [address] Call: [phone] 4)[facility] [address] [place] [address] 5)[facility] [address] [place] [address] ext. 4 Copy of the above resource list was filed in the patient's chart.
[2020-07-06] MEDS: FLUOXETINE HCL 10 MG CAPSULE PO SCH (12:30)
--- NOTE | 2020-07-06 14:54 | NUR ---
NAYELI called APS NAYELI Wesley [phone] to provide report on patient's discharge plans, as requested by Maryjane on 06/30 during initial phone conversation with this NAYELI. NAYELI informed Maryjane that patient was being discharged home today. Maryjane thanked NAYELI for this information, and stated she would follow-up with the patient.
--- NOTE | 2020-07-06 15:00 | NUR ---
Patient discharge with all his paperwork and belongings. Patient was stable. No sign of distress noted. All medications given as ordered. Patient IV and ID band removed. Patient picked up in private vehicle by cousin Vicky. Patient left walker in room. Tried multiple times to reach the contact information on file. Made bottle caser Oksana aware, She is also trying to reach the family.
== END 2020-07-06 14:58 | disposition home health service (06) | DRG 383 ==
LOC: ER 16:44 → MEDSURG3 20:14
PROVIDERS: ADMIT Internal Medicine; ATTEND Registered Nurse
PROC: 30233N1 Transfusion of Nonautologous Red Blood Cells into Peripheral Vein, Percutaneous Approach (ICD-10-PCS; principal; 2020-06-27)
PROC: 0JBR0ZZ Excision of Left Foot Subcutaneous Tissue and Fascia, Open Approach (ICD-10-PCS; 2020-06-28)
PROC: 0JBP0ZZ Excision of Left Lower Leg Subcutaneous Tissue and Fascia, Open Approach (ICD-10-PCS; 2020-06-28)
PROC: 0JBN0ZZ Excision of Right Lower Leg Subcutaneous Tissue and Fascia, Open Approach (ICD-10-PCS; 2020-06-28)
PROC: 0JBQ0ZZ Excision of Right Foot Subcutaneous Tissue and Fascia, Open Approach (ICD-10-PCS; 2020-06-28)
PROC: 0DB68ZX Excision of Stomach, Via Natural or Artificial Opening Endoscopic, Diagnostic (ICD-10-PCS; 2020-07-04)
DX: L03.116 Cellulitis of left lower limb (principal); E87.0 Hyperosmolality and hypernatremia; N17.0 Acute kidney failure with tubular necrosis; L97.322 Non-pressure chronic ulcer of left ankle with fat layer exposed; I87.2 Venous insufficiency (chronic) (peripheral); L97.312 Non-pressure chronic ulcer of right ankle with fat layer exposed; L97.822 Non-pressure chronic ulcer of other part of left lower leg with fat layer exposed; L97.812 Non-pressure chronic ulcer of other part of right lower leg with fat layer exposed; E86.0 Dehydration; E43 Unspecified severe protein-calorie malnutrition; F33.2 Major depressive disorder, recurrent severe without psychotic features; F42.9 Obsessive-compulsive disorder, unspecified; D68.69 Other thrombophilia; R62.7 Adult failure to thrive; K59.00 Constipation, unspecified; R53.1 Weakness; I25.10 Atherosclerotic heart disease of native coronary artery without angina pectoris; L03.115 Cellulitis of right lower limb; Z68.1 Body mass index [BMI] 19.9 or less, adult; R55 Syncope and collapse; E88.09 Other disorders of plasma-protein metabolism, not elsewhere classified; D63.1 Anemia in chronic kidney disease; D72.821 Monocytosis (symptomatic); D50.9 Iron deficiency anemia, unspecified; K29.70 Gastritis, unspecified, without bleeding; K20.90 Esophagitis, unspecified without bleeding; J90 Pleural effusion, not elsewhere classified; Z20.822 Contact with and (suspected) exposure to COVID-19; D73.89 Other diseases of spleen; I89.0 Lymphedema, not elsewhere classified
CPT/HCPCS: 36415; 70030-TC; 71045; 76700; 82378; 82784; 83550; 83735; 83970; 84100; 84155; 84156; 84165; 84300; 84443; 85025; 85730; 86334; 86850; 86900; 86901; 86920; 88313-TC; 88342; 93005; A4217; A4663; C9113; G0378; J0692; J2250; J2543; J2916; J3370; J3475; J3490; J7040; J7050; J7060; J7070; J7120; P9016-BL; P9021; Q9951; Q9967; U0003